=== PATIENT | female | born 1965 | race African-American/Black ===

== ENCOUNTER 2018-04-20 11:58 | Emergency (ER) | payer OTHER ==
[~2018-04-20] VITALS: Ht 167.6 cm; Wt 90.7 kg
--- OUTSIDE RECORDS SUMMARY | 2018-04-20 12:01 | XMS REPORT | Continuity of Care Document ---
Author Author [facility] Organization [facility] Address Unknown Phone Unavailable Care Team Providers Care Motel Front Desk Attendant Name Role Phone JEREL Little LaTanya PP Unavailable Insurance Providers Payer name Policy type / Coverage type Policy ID Covered libertarian ID Policy [place] AETNA - CHOICE PLUS (POS II) AETNA - CHOICE PLUS (POS II) Encounters Encounter Performer Location Date Lab Report Maru Little APRN [facility] Feb 20, 2014 Problems Problem Effective Dates Problem Status CHEST PAIN, ATYPICAL Oct 30, 2012 Active SCREENING, DIABETES MELLITUS Oct 30, 2012 Active FATIGUE Oct 30, 2012 Active HYPOTHYROIDISM Oct 30, 2012 Active MITRAL VALVE PROLAPSE, HX OF Oct 30, 2012 Active VITAMIN D DEFICIENCY Nov 04, 2012 Active SPRAIN&STRAIN UNSPEC SITE SHOULDER&UPPER ARM Jul 20, 2013 Active MUSCLE CRAMPS Feb 20, 2014 Active HISTORY OF - PARATHYROIDECTOMY Feb 20, 2014 Active GANGLION CYST Feb 20, 2014 Active ORAL CONTRACEPTION Feb 20, 2014 Active Procedures Date Description Comments Oct 30, 2012 smoking status never smoker 2012 echocardiogram, complete Complete Feb 20, 2014 smoking status Never smoker Medications Medication Instructions Start Date Status HYOSCYAMINE SULFATE 0.125 MG TABS 3 tabs po bid Oct 30, 2012 Inactive BENZAC W WASH 5 % LIQD use once daily as needed on face Oct 30, 2012 Inactive VITAMIN D (ERGOCALCIFEROL) 76596 UNIT CAPS 1 tab po q weekly for 12 weeks Nov 04, 2012 Inactive TRAMADOL HCL 50 MG TABS 1 tablet twice daily Jul 20, 2013 Inactive BACLOFEN 10 MG TABS 1/2 - 1 tab nightly as needed for muscle spasms Feb 20, 2014 Active GILDESS 1/20 1-20 MG-MCG TABS 1 tab po daily Feb 20, 2014 Active VITAMIN D (ERGOCALCIFEROL) 00311 UNIT CAPS 1 capsule weekly Feb 24, 2014 Active Vital Signs Date Description Test Result Oct 30, 2012 height E&M - 8302-2 HEIGHT 63 in Oct 30, 2012 blood pressure, systolic - 8480-6 BP SYSTOLIC 133 mm Hg Oct 30, 2012 blood pressure, diastolic - 8462-4 BP DIASTOLIC 73 mm Hg Oct 30, 2012 pulse rate E&M - 8867-4 PULSE RATE 79 /min Oct 30, 2012 temperature E&M TEMPERATURE 98.7 deg f Oct 30, 2012 weight E&M - 3141-9 WEIGHT 176 lb Jul 20, 2013 weight E&M - 3141-9 WEIGHT 183 lb Jul 20, 2013 temperature E&M TEMPERATURE 97.9 deg f Jul 20, 2013 blood pressure, systolic - 8480-6 BP SYSTOLIC 118 mm Hg Jul 20, 2013 blood pressure, diastolic - 8462-4 BP DIASTOLIC 71 mm Hg Feb 20, 2014 weight E&M - 3141-9 WEIGHT 177 lb Feb 20, 2014 height E&M - 8302-2 HEIGHT 63 in Feb 20, 2014 pulse rate E&M - 8867-4 PULSE RATE 81 /min Feb 20, 2014 blood pressure, systolic - 8480-6 BP SYSTOLIC 117 mm Hg Feb 20, 2014 blood pressure, diastolic - 8462-4 BP DIASTOLIC 70 mm Hg Feb 20, 2014 temperature E&M TEMPERATURE 96.5 deg f Results Date Description Test Name Value Reference Interpretation Status Oct 30, 2012 hemoglobin, blood HGB 11.9 g/dL 12.0-16.0 Low Oct 30, 2012 hematocrit, blood HCT 36.5 % 36.0-48.0 Oct 30, 2012 platelet count PLATELETS 198 K/CMM /mm3 133-450 Jul 20, 2013 hemoglobin, blood HGB 11.8 g/dL 12.0-16.0 Low Jul 20, 2013 hematocrit, blood HCT 34.7 % 36.0-48.0 Low Jul 20, 2013 platelet count PLATELETS 193 K/CMM /mm3 133-450 Oct 30, 2012 thyroid stimulating hormone, serum TSH 0.763 uIU/mL 0.360-3.740 Jul 20, 2013 sodium, serum SODIUM 141 MEQ/L mmol/L 135-145 Jul 20, 2013 potassium, serum POTASSIUM 4.0 MEQ/L mmol/L 3.5-5.1 Jul 20, 2013 creatinine, serum CREATININE 0.8 mg/dL 0.5-1.4 Jul 20, 2013 urea nitrogen, blood BUN 7 mg/dL 7-Jul 20, 2013 urea nitrogen/creatinine ratio, serum BUN/CREAT 9 null 6-25 Jul 20, 2013 albumin, serum ALBUMIN 3.8 g/dL 3.5-5.0 Jul 20, 2013 calcium, serum CALCIUM 8.6 mg/dL 8.5-10.5 Jul 20, 2013 alanine aminotransferase (SGPT), serum SGPT (ALT) 20 U/L 0-65 Jul 20, 2013 aspartate aminotransferase (SGOT), serum SGOT (AST) 12 U/L 0-37 Jul 20, 2013 alkaline phosphatase, serum ALK PHOS 74 U/L 39-136 Jul 20, 2013 folate, serum FOLATE 18.7 ng/mL >=3.0 Jul 20, 2013 thyroid stimulating hormone, serum TSH 0.398 uIU/mL 0.360-3.740 Feb 20, 2014 phosphate, serum PO4 2.9 mg/dL 2.5-4.5 Feb 20, 2014 creatine kinase, serum CPK 44 U/L 12-191 Feb 20, 2014 magnesium, serum MAGNESIUM 1.7 mg/dL 1.8-2.4 Low Feb 20, 2014 sodium, serum SODIUM 143 MEQ/L mmol/L 135-145 Feb 20, 2014 potassium, serum POTASSIUM 3.9 MEQ/L mmol/L 3.5-5.1 Feb 20, 2014 creatinine, serum CREATININE 0.8 mg/dL 0.5-1.4 Feb 20, 2014 urea nitrogen, blood BUN 8 mg/dL 7-22 Feb 20, 2014 urea nitrogen/creatinine ratio, serum BUN/CREAT 10 null 6-25 Feb 20, 2014 albumin, serum ALBUMIN 3.4 g/dL 3.5-5.0 Low Feb 20, 2014 calcium, serum CALCIUM 8.6 mg/dL 8.5-10.5 Feb 20, 2014 alanine aminotransferase (SGPT), serum SGPT (ALT) 16 U/L 0-65 Feb 20, 2014 aspartate aminotransferase (SGOT), serum SGOT (AST) 14 U/L 0-37 Feb 20, 2014 alkaline phosphatase, serum ALK PHOS 68 U/L 39-136 Feb 20, 2014 thyroxine, serum, free T4, FREE 1.13 ng/dl 0.76-1.46 Feb 20, 2014 thyroid stimulating hormone, serum TSH 0.990 uIU/mL 0.360-3.740 Feb 20, 2014 parathormone, serum PTH, INTACT 55.0 pg/mL 11.1-79.5
--- OUTSIDE RECORDS SUMMARY | 2018-04-20 12:01 | XMS REPORT | Continuity of Care Document ---
Author Author [facility] Organization [facility] Address Unknown Phone Unavailable Care Team Providers Care Long Wall Mining Machine Helper Name Role Phone JEREL Little LaTanya PP Unavailable Insurance Providers Payer name Policy type / Coverage type Policy ID Covered alliance party ID Policy [place] AETNA - CHOICE PLUS (POS II) AETNA - CHOICE PLUS (POS II) Encounters Encounter Performer Location Date Office Visit Maru Little APRN [facility] Jul 20, 2013 Problems Problem Effective Dates Problem Status CHEST PAIN, ATYPICAL Oct 30, 2012 Active SCREENING, DIABETES MELLITUS Oct 30, 2012 Active FATIGUE Oct 30, 2012 Active HYPOTHYROIDISM Oct 30, 2012 Active MITRAL VALVE PROLAPSE, HX OF Oct 30, 2012 Active VITAMIN D DEFICIENCY Nov 04, 2012 Active SPRAIN&STRAIN UNSPEC SITE SHOULDER&UPPER ARM Jul 20, 2013 Active Procedures Date Description Comments Oct 30, 2012 smoking status never smoker 2012 echocardiogram, complete Complete Medications Medication Instructions Start Date Status HYOSCYAMINE SULFATE 0.125 MG TABS 3 tabs po bid Oct 30, 2012 Inactive BENZAC W WASH 5 % LIQD use once daily as needed on face Oct 30, 2012 Inactive VITAMIN D (ERGOCALCIFEROL) 14401 UNIT CAPS 1 tab po q weekly for 12 weeks Nov 04, 2012 Inactive TRAMADOL HCL 50 MG TABS 1 tablet twice daily Jul 20, 2013 Active Vital Signs Date Description Test Result [...] - 8462-4 BP DIASTOLIC 71 mm Hg Results Date Description Test Name Value Reference [...] 2013 urea nitrogen, blood BUN 7 mg/dL 7-22 Jul 20, 2013 urea nitrogen/creatinine ratio, serum BUN/CREAT [...]
--- OUTSIDE RECORDS SUMMARY | 2018-04-20 12:01 | XMS REPORT | Continuity of Care Document ---
Author Author [facility] Organization [facility] Address Unknown Phone Unavailable Care Team Providers Care Tyre Fitter Name Role Phone JEREL Little LaTanya PP Unavailable Insurance Providers Payer name Policy type / Coverage type Policy ID Covered green party ID Policy [place] AETNA - CHOICE PLUS (POS II) AETNA - CHOICE PLUS (POS II) Encounters Encounter Performer Location Date Office Visit Maru Little APRN [facility] September 16, 2014 Problems Problem Effective Dates Problem Status CHEST PAIN, ATYPICAL Oct 30, 2012 Inactive SCREENING, DIABETES MELLITUS Oct 30, 2012 Active FATIGUE Oct 30, 2012 Inactive HYPOTHYROIDISM Oct 30, 2012 Active MITRAL VALVE PROLAPSE, HX OF Oct 30, 2012 Active VITAMIN D DEFICIENCY Nov 04, 2012 Active SPRAIN&STRAIN UNSPEC SITE SHOULDER&UPPER ARM Jul 20, 2013 Inactive MUSCLE CRAMPS Feb 20, 2014 Inactive HISTORY OF - PARATHYROIDECTOMY Feb 20, 2014 Active GANGLION CYST Feb 20, 2014 Active ORAL CONTRACEPTION Feb 20, 2014 Active SCREENING FOR DIABETES MELLITUS Mar 03, 2014 Active LEUKORRHEA, NOT SPECIFIED INFECTIVE Apr 19, 2014 Active DYSURIA Apr 19, 2014 Active INFLUENZA - TYPE A Jun 05, 2014 Inactive DYSPEPSIA AND OTHER SPECIFIED DISORDERS OF FUNCTION OF STOMACH September 16, 2014 Active ANEMIA September 16, 2014 Active IRRITABLE BOWEL SYNDROME September 16, 2014 Active Procedures Date Description Comments Oct 30, 2012 smoking status never smoker 2012 echocardiogram, complete Complete Feb 20, 2014 smoking status Never smoker Jun 05, 2014 smoking status Never smoker September 16, 2014 smoking status Never smoker Medications Medication Instructions Start Date Status HYOSCYAMINE SULFATE 0.125 MG TABS 3 tabs po bid Oct 30, 2012 Inactive BENZAC W WASH 5 % LIQD use once daily as needed on face Oct 30, 2012 Inactive VITAMIN D (ERGOCALCIFEROL) 37198 UNIT CAPS 1 tab po q weekly for 12 weeks Nov 04, 2012 Inactive TRAMADOL HCL 50 MG TABS 1 tablet twice daily Jul 20, 2013 Inactive VITAMIN D (ERGOCALCIFEROL) 97825 UNIT CAPS 1 capsule weekly Feb 24, 2014 Inactive METRONIDAZOLE 500 MG TABS one po bid Apr 19, 2014 Inactive BACTRIM DS 800-160 MG TABS one po bid Apr 19, 2014 Inactive FLUCONAZOLE 150 MG TABS one po now and may repeat on 72 h x 2 if problem presists Apr 19, 2014 Inactive FLUCONAZOLE 150 MG TABS one po now May 27, 2014 Inactive BACLOFEN 10 MG TABS 1/2 - 1 tab nightly as needed for muscle spasms Feb 20, 2014 Inactive GILDESS 1/20 1-20 MG-MCG TABS 1 tab po daily Feb 20, 2014 Inactive LIDOCAINE HCL 2 % GEL apply to affected painful area tid prn Apr 19, 2014 Inactive TAMIFLU 75 MG CAPS 1 capsule twice daily Jun 05, 2014 Inactive OMEPRAZOLE 40 MG CPDR Take one capsule by mouth daily September 16, 2014 Active HYOSCYAMINE SULFATE 0.125 MG TABS 1 tab po up to 3x daily prior to meals September 16, 2014 Active Vital Signs Date Description Test [...] 2014 temperature E&M TEMPERATURE 96.5 deg f Apr 19, 2014 weight E&M - 3141-9 WEIGHT 173 lb Apr 19, 2014 temperature E&M TEMPERATURE 98.7 deg f Apr 19, 2014 blood pressure, systolic - 8480-6 BP SYSTOLIC 110 mm Hg Apr 19, 2014 blood pressure, diastolic - 8462-4 BP DIASTOLIC 73 mm Hg Apr 19, 2014 pulse rate E&M - 8867-4 PULSE RATE 72 /min Jun 05, 2014 height E&M - 8302-2 HEIGHT 63 in Jun 05, 2014 weight E&M - 3141-9 WEIGHT 172 lb Jun 05, 2014 temperature E&M TEMPERATURE 101.2 deg f Jun 05, 2014 pulse rate E&M - 8867-4 PULSE RATE 93 /min Jun 05, 2014 blood pressure, systolic - 8480-6 BP SYSTOLIC 135 mm Hg Jun 05, 2014 blood pressure, diastolic - 8462-4 BP DIASTOLIC 79 mm Hg September 16, 2014 weight E&M - 3141-9 WEIGHT 175 lb September 16, 2014 blood pressure, systolic - 8480-6 BP SYSTOLIC 122 mm Hg September 16, 2014 blood pressure, diastolic - 8462-4 BP DIASTOLIC 76 mm Hg September 16, 2014 pulse rate E&M - 8867-4 PULSE RATE 74 /min September 16, 2014 temperature E&M TEMPERATURE 98.5 deg f Results Date Description Test Name [...] parathormone, serum PTH, INTACT 55.0 pg/mL 11.1-79.5 Mar 10, 2014 hemoglobin A1C, blood, as % of total hemoglobin HGBA1C 5.4 % <=5.6
--- OUTSIDE RECORDS SUMMARY | 2018-04-20 12:01 | XMS REPORT | Continuity of Care Document ---
Author Author [facility] Organization [facility] Address Unknown Phone Unavailable Care Team Providers Care Load Haul Dump Operator Name Role Phone JEREL Little LaTanya PP Unavailable Insurance Providers Payer name Policy type / Coverage type Policy ID Covered green party ID Policy [place] AETNA - CHOICE PLUS (POS II) AETNA - CHOICE PLUS (POS II) Encounters Encounter Performer Location Date Lab Report Maru Little APRN [facility] Mar 10, 2014 Problems Problem Effective Dates Problem Status [...] FOR DIABETES MELLITUS Mar 03, 2014 Active Procedures Date Description Comments Oct 30, 2012 smoking status never smoker 2012 echocardiogram, complete Complete Feb 20, 2014 smoking status Never smoker Medications Medication Instructions Start Date Status HYOSCYAMINE SULFATE 0.125 MG TABS 3 tabs po bid Oct 30, 2012 Inactive BENZAC W WASH 5 % LIQD use once daily as needed on face Oct 30, 2012 Inactive VITAMIN D (ERGOCALCIFEROL) 32043 UNIT CAPS 1 tab po q weekly for 12 weeks Nov 04, 2012 Inactive TRAMADOL HCL 50 MG TABS 1 tablet twice daily Jul 20, 2013 Inactive BACLOFEN 10 MG TABS 1/2 - 1 tab nightly as needed for muscle spasms Feb 20, 2014 Active GILDESS 1/20 1-20 MG-MCG TABS 1 tab po daily Feb 20, 2014 Active VITAMIN D (ERGOCALCIFEROL) 82222 UNIT CAPS 1 capsule weekly Feb 24, [...]
--- OUTSIDE RECORDS SUMMARY | 2018-04-20 12:01 | XMS REPORT | Continuity of Care Document ---
Author Author [facility] Organization [facility] Address Unknown Phone Unavailable Care Team Providers Care Rf Design Engineer Name Role Phone JEREL Little LaTanya PP Unavailable Insurance Providers Payer name Policy type / Coverage type Policy ID Covered democrat ID Policy [place]agne AETNA - CHOICE PLUS (POS II) AETNA - CHOICE PLUS (POS II) Encounters Encounter Performer Location Date Lab Report Maru Little APRN [facility] [place] Jul 22, 2013 Problems Problem Effective Dates Problem Status [...] Oct 30, 2012 Inactive VITAMIN D (ERGOCALCIFEROL) 42040 UNIT CAPS 1 tab po q weekly [...]
--- OUTSIDE RECORDS SUMMARY | 2018-04-20 12:01 | XMS REPORT | Continuity of Care Document ---
Author Author [facility] Organization [facility] Address Unknown Phone Unavailable Care Team Providers Care Master Motorcycle Technician Name Role Phone JEREL Little LaTanya PP Unavailable Insurance Providers Payer name Policy type / Coverage type Policy ID Covered green party ID Policy [place] AETNA - CHOICE PLUS (POS II) AETNA - CHOICE PLUS (POS II) Encounters Encounter Performer Location Date Office Visit Maru Little APRN [facility] Jun 05, 2014 Problems Problem Effective Dates Problem Status [...] INFLUENZA - TYPE A Jun 05, 2014 Active Procedures Date Description Comments Oct 30, 2012 smoking status never smoker 2012 echocardiogram, complete Complete Feb 20, 2014 smoking status Never smoker Jun 05, 2014 smoking status Never smoker Medications Medication Instructions Start Date Status HYOSCYAMINE SULFATE 0.125 MG TABS 3 tabs po bid Oct 30, 2012 Inactive BENZAC W WASH 5 % LIQD use once daily as needed on face Oct 30, 2012 Inactive VITAMIN D (ERGOCALCIFEROL) 90628 UNIT CAPS 1 tab po q weekly for 12 weeks Nov 04, 2012 Inactive TRAMADOL HCL 50 MG TABS 1 tablet twice daily Jul 20, 2013 Inactive VITAMIN D (ERGOCALCIFEROL) 28351 UNIT CAPS 1 capsule weekly Feb 24, [...] muscle spasms Feb 20, 2014 Inactive GILDESS 05/13 1-20 MG-MCG TABS 1 tab po daily Feb 20, 2014 Inactive LIDOCAINE HCL 2 % GEL apply to affected painful area tid prn Apr 19, 2014 Inactive TAMIFLU 75 MG CAPS 1 capsule twice daily Jun 05, 2014 Active Vital Signs Date Description Test [...] - 8462-4 BP DIASTOLIC 79 mm Hg Results Date Description Test Name [...]
--- OUTSIDE RECORDS SUMMARY | 2018-04-20 12:01 | XMS REPORT | Clinical Summary ---
Author Author [facility] Organization [facility] Address Unknown Phone Unavailable Care Team Providers Care Audio Visual Equipment Rental Clerk Name Role Phone Asked, No Pcp PCP Unavailable Allergies No Known Allergies Medications End Date Status Medication Sig Dispensed Refills Start Date Active methylPREDNISolone Take 2 mg by 0 (MEDROL) 2 MG tablet mouth daily. Active hydrOXYzine (ATARAX) 25 Take 25 mg by 0 MG tablet mouth 3 (three) times a day as needed for itching. Active Problems Not on file Social History Date Tobacco Use Types Packs/Day Years Used Never Smoker Alcohol Use Drinks/Week oz/Week Comments No Sex Assigned at Date Recorded Not on file Industry Job Start Date Occupation Not on file Not on file Not on file Travel End Travel History Travel Start No recent travel history available. Last Filed Vital Signs Not on file Plan of Treatment Health Maintenance Due Date Last Done Comments CERVICAL CANCER SCREENING 12/07/1987 COLON CANCER SCREENING 2016 SHINGLES VACCINES (1 of 2016 2) BREAST CANCER SCREENING 07/19/2017 07/20/2015, 07/20/2015, 07/04/2015 INFLUENZA VACCINE 11/22/2017 Results Not on fileafter 04/19/2017 Insurance Payer Benefit Subscriber ID Type Phone Address Plan / Group CIGNA CIGNA xxxxxxxxxxx HMO HMO/POS [id number] (Work) Advance Directives Patient has advance care planning documents on file. For more information, lyla velasco contact: Greg Horne [address] [place] [address]
--- OUTSIDE RECORDS SUMMARY | 2018-04-20 12:01 | XMS REPORT | Continuity of Care Document ---
Author Author [facility] Organization [facility] Address Unknown Phone Unavailable Care Team Providers Care Anhydrous Ammonia Production Supervisor Name Role Phone JEREL Little LaTanya PP Unavailable Insurance Providers Payer name Policy type / Coverage type Policy ID Covered green party ID Policy [place] AETNA - CHOICE PLUS (POS II) AETNA - CHOICE PLUS (POS II) Encounters Encounter Performer Location Date Lab Report Maru Little APRN [facility] Apr 18, 2014 Problems Problem Effective Dates Problem Status [...] 2014 Active DYSURIA Apr 19, 2014 Active Procedures Date Description Comments Oct 30, 2012 smoking status never smoker 2012 echocardiogram, complete Complete Feb 20, 2014 smoking status Never smoker Medications Medication Instructions Start Date Status HYOSCYAMINE SULFATE 0.125 MG TABS 3 tabs po bid Oct 30, 2012 Inactive BENZAC W WASH 5 % LIQD use once daily as needed on face Oct 30, 2012 Inactive VITAMIN D (ERGOCALCIFEROL) 27391 UNIT CAPS 1 tab po q weekly for 12 weeks Nov 04, 2012 Inactive TRAMADOL HCL 50 MG TABS 1 tablet twice daily Jul 20, 2013 Inactive BACLOFEN 10 MG TABS 1/2 - 1 tab nightly as needed for muscle spasms Feb 20, 2014 Active GILDESS 1/20 1-20 MG-MCG TABS 1 tab po daily Feb 20, 2014 Active VITAMIN D (ERGOCALCIFEROL) 86514 UNIT CAPS 1 capsule weekly Feb 24, 2014 Inactive METRONIDAZOLE 500 MG TABS one po bid Apr 19, 2014 Inactive LIDOCAINE HCL 2 % GEL apply to affected painful area tid prn Apr 19, 2014 Active BACTRIM DS 800-160 MG TABS one po bid Apr 19, 2014 Inactive FLUCONAZOLE 150 MG TABS one po now and may repeat on 72 h x 2 if problem presists Apr 19, 2014 Inactive Vital Signs Date Description Test Result Oct [...] E&M - 8867-4 PULSE RATE 72 /min Results Date Description Test Name Value Reference [...]
--- OUTSIDE RECORDS SUMMARY | 2018-04-20 12:01 | XMS REPORT | Continuity of Care Document ---
Author Author [facility] Interface Address Unknown Phone Unavailable Problems Problem Status Onset Date Classification Date Reported Comments Source DYSPEPSIA AND OTHER SPECIFIED DISORDERS OF FUNCTION OF STOMACH Active 09/16/2014 Condition 09/16/2014 [facility] ANEMIA Active 09/16/2014 Condition 09/16/2014 [facility] IRRITABLE BOWEL SYNDROME Active 09/16/2014 Condition 09/16/2014 [facility] INFLUENZA - TYPE A Inactive 06/05/2014 Condition 09/16/2014 [facility] LEUKORRHEA, NOT SPECIFIED INFECTIVE Active 04/19/2014 Condition 09/16/2014 [facility] DYSURIA Active 04/19/2014 Condition 09/16/2014 [facility] SCREENING FOR DIABETES MELLITUS Active 03/03/2014 Condition 09/16/2014 [facility] MUSCLE CRAMPS Inactive 02/20/2014 Condition 09/16/2014 [facility] HISTORY OF - PARATHYROIDECTOMY Active 02/20/2014 Condition 09/16/2014 [facility] GANGLION CYST Active 02/20/2014 Condition 09/16/2014 [facility] ORAL CONTRACEPTION Active 02/20/2014 Condition 09/16/2014 [facility] SPRAIN&STRAIN UNSPEC SITE SHOULDER&UPPER ARM Inactive 07/20/2013 Condition 09/16/2014 [facility] VITAMIN D DEFICIENCY Active 11/04/2012 Condition 09/16/2014 [facility] CHEST PAIN, ATYPICAL Inactive 10/30/2012 Condition 09/16/2014 [facility] SCREENING, DIABETES MELLITUS Active 10/30/2012 Condition 09/16/2014 [facility] FATIGUE Inactive 10/30/2012 Condition 09/16/2014 [facility] HYPOTHYROIDISM Active 10/30/2012 Condition 09/16/2014 [facility] MITRAL VALVE PROLAPSE, HX OF Active 10/30/2012 Condition 09/16/2014 [facility] Medications Medication Details Route Status Patient Instructions Ordering Provider Order Date Source MAGNESIUM OXIDE 400 MG CAPS 1 cap po bid for low magnesium Active 09/22/2014 [facility] VITAMIN D3 19438 UNIT CAPS 50,000 units once weekly x 12 weeks Active 09/22/2014 [facility] OMEPRAZOLE 40 MG CPDR Take one capsule by mouth daily Active 09/16/2014 [facility] HYOSCYAMINE SULFATE 0.125 MG TABS 1 tab po up to 3x daily prior to meals Active 09/16/2014 [facility] TAMIFLU 75 MG CAPS 1 capsule twice daily No Longer Active 06/05/2014 [facility] FLUCONAZOLE 150 MG TABS one po now No Longer Active 05/27/2014 [facility] METRONIDAZOLE 500 MG TABS one po bid No Longer Active 04/19/2014 [facility] LIDOCAINE HCL 2 % GEL apply to affected painful area tid prn No Longer Active 04/19/2014 [facility] BACTRIM DS 800-160 MG TABS one po bid No Longer Active 04/19/2014 [facility] FLUCONAZOLE 150 MG TABS one po now and may repeat on 72 h x 2 if problem presists No Longer Active 04/19/2014 [facility] VITAMIN D (ERGOCALCIFEROL) 33008 UNIT CAPS 1 capsule weekly No Longer Active 02/24/2014 [facility] BACLOFEN 10 MG TABS 1/2 - 1 tab nightly as needed for muscle spasms Active 02/20/2014 [facility] GILDESS 05/13 1-20 MG-MCG TABS 1 tab po daily No Longer Active 02/20/2014 [facility] BACLOFEN 10 MG TABS 1/2 - 1 tab nightly as needed for muscle spasms Active 02/20/2014 [facility] ORTHO TRI-CYCLEN LO 0.18/0.215/0.25 MG-25 MCG TABS 1 tablet daily Active 02/20/2014 [facility] BACLOFEN 10 MG TABS 1/2 - 1 tab nightly as needed for muscle spasms Active 02/20/2014 [facility] BACLOFEN 10 MG TABS 1/2 - 1 tab nightly as needed for muscle spasms No Longer Active 02/20/2014 [facility] TRAMADOL HCL 50 MG TABS 1 tablet twice daily No Longer Active 07/20/2013 [facility] TRAMADOL HCL 50 MG TABS 1 tablet twice daily No Longer Active 07/20/2013 [facility] TRAMADOL HCL 50 MG TABS 1 tablet twice daily No Longer Active 07/20/2013 [facility] TRAMADOL HCL 50 MG TABS 1 tablet twice daily No Longer Active 07/20/2013 [facility] VITAMIN D (ERGOCALCIFEROL) 95808 UNIT CAPS 1 tab po q weekly for 12 weeks No Longer Active 11/04/2012 [facility] VITAMIN D (ERGOCALCIFEROL) 24032 UNIT CAPS 1 tab po q weekly for 12 weeks No Longer Active 11/04/2012 [facility] HYOSCYAMINE SULFATE 0.125 MG TABS 3 tabs po bid No Longer Active 10/30/2012 [facility] BENZAC W WASH 5 % LIQD use once daily as needed on face No Longer Active 10/30/2012 [facility] HYOSCYAMINE SULFATE 0.125 MG TABS 3 tabs po bid No Longer Active 10/30/2012 [facility] Allergies, Adverse Reactions, Alerts Substance Category Reaction Severity Reaction type Status Date Reported Comments Source Immunizations Immunization Date Given Site Status Last Updated Comments Source Results Order Name Results Value Reference Range Date Interpretation Comments Source Chemistry MAGNESIUM 1.6 mg/dL 1.8 - 2.4 09/16/2014 [facility] Chemistry SODIUM 141 MEQ/L mmol/L 135 - 145 09/16/2014 [facility] Chemistry POTASSIUM 4.2 MEQ/L mmol/L 3.5 - 5.1 09/16/2014 [facility] Chemistry CREATININE 0.8 mg/dL 0.5 - 1.4 09/16/2014 [facility] Chemistry BUN 8 mg/dL 7 - 22 09/16/2014 [facility] Chemistry BUN/CREAT 10 6 - 25 09/16/2014 [facility] Chemistry ALBUMIN 3.4 g/dL 3.5 - 5.0 09/16/2014 [facility] Chemistry CALCIUM 8.6 mg/dL 8.5 - 10.5 09/16/2014 [facility] Chemistry SGPT (ALT) 23 U/L 0 - 65 09/16/2014 [facility] Chemistry SGOT (AST) 16 U/L 0 - 37 09/16/2014 [facility] Chemistry ALK PHOS 67 U/L 39 - 136 09/16/2014 [facility] Chemistry T4, FREE 1.01 ng/dl 0.76 - 1.46 09/16/2014 [facility] Chemistry TSH 0.978 uIU/mL 0.360 - 3.740 09/16/2014 [facility] Hematology HGB 11.6 g/dL 12.0 - 16.0 09/16/2014 [facility] Hematology HCT 35.2 % 36.0 - 48.0 09/16/2014 [facility] Hematology PLATELETS 238 K/CMM /mm3 133 - 450 09/16/2014 [facility] Urinalysis UA COLOR Light Yellow 09/16/2014 [facility] Urinalysis BACTERIA URN Occasional 09/16/2014 [facility] Chemistry HGBA1C 5.4 % - 5.6 03/10/2014 [facility] Chemistry HGBA1C 5.4 % - 5.6 03/10/2014 [facility] Chemistry PO4 2.9 mg/dL 2.5 - 4.5 02/20/2014 [facility] Chemistry CPK 44 U/L 12 - 191 02/20/2014 [facility] Chemistry MAGNESIUM 1.7 mg/dL 1.8 - 2.4 02/20/2014 [facility] Chemistry SODIUM 143 MEQ/L mmol/L 135 - 145 02/20/2014 [facility] Chemistry POTASSIUM 3.9 MEQ/L mmol/L 3.5 - 5.1 02/20/2014 [facility] Chemistry PO4 2.9 mg/dL 2.5 - 4.5 02/20/2014 [facility] Chemistry CPK 44 U/L 12 - 191 02/20/2014 [facility] Chemistry MAGNESIUM 1.7 mg/dL 1.8 - 2.4 02/20/2014 [facility] Chemistry SODIUM 143 MEQ/L mmol/L 135 - 145 02/20/2014 [facility] Chemistry POTASSIUM 3.9 MEQ/L mmol/L 3.5 - 5.1 02/20/2014 [facility] Chemistry CREATININE 0.8 mg/dL 0.5 - 1.4 02/20/2014 [facility] Chemistry BUN 8 mg/dL 7 - 22 02/20/2014 [facility] Chemistry BUN/CREAT 10 6 - 25 02/20/2014 [facility] Chemistry ALBUMIN 3.4 g/dL 3.5 - 5.0 02/20/2014 [facility] Chemistry CALCIUM 8.6 mg/dL 8.5 - 10.5 02/20/2014 [facility] Chemistry SGPT (ALT) 16 U/L 0 - 65 02/20/2014 [facility] Chemistry SGOT (AST) 14 U/L 0 - 37 02/20/2014 [facility] Chemistry ALK PHOS 68 U/L 39 - 136 02/20/2014 [facility] Chemistry T4, FREE 1.13 ng/dl 0.76 - 1.46 02/20/2014 [facility] Chemistry TSH 0.990 uIU/mL 0.360 - 3.740 02/20/2014 [facility] Chemistry PTH, INTACT 55.0 pg/mL 11.1 - 79.5 02/20/2014 [facility] Chemistry SODIUM 141 MEQ/L mmol/L 135 - 145 07/20/2013 [facility] Chemistry POTASSIUM 4.0 MEQ/L mmol/L 3.5 - 5.1 07/20/2013 [facility] Chemistry CREATININE 0.8 mg/dL 0.5 - 1.4 07/20/2013 [facility] Chemistry BUN 7 mg/dL 7 - 22 07/20/2013 Medical [facility] Chemistry BUN/CREAT 9 6 - 25 07/20/2013 [facility] Chemistry SODIUM 141 MEQ/L mmol/L 135 - 145 07/20/2013 [facility] Chemistry POTASSIUM 4.0 MEQ/L mmol/L 3.5 - 5.1 07/20/2013 Medical [facility] Chemistry CREATININE 0.8 mg/dL 0.5 - 1.4 07/20/2013 Medical [facility] Chemistry BUN 7 mg/dL 7 - 22 07/20/2013 Medical [facility] Chemistry BUN/CREAT 9 6 - 25 07/20/2013 [facility] Chemistry ALBUMIN 3.8 g/dL 3.5 - 5.0 07/20/2013 [facility] Chemistry CALCIUM 8.6 mg/dL 8.5 - 10.5 07/20/2013 Medical [facility] Chemistry SGPT (ALT) 20 U/L 0 - 65 07/20/2013 [facility] Chemistry SGOT (AST) 12 U/L 0 - 37 07/20/2013 Medical [facility] Chemistry ALK PHOS 74 U/L 39 - 136 07/20/2013 Medical [facility] Chemistry FOLATE 18.7 ng/mL >=3.0 07/20/2013 [facility] Chemistry TSH 0.398 uIU/mL 0.360 - 3.740 07/20/2013 Medical [facility] Hematology HGB 11.8 g/dL 12.0 - 16.0 07/20/2013 Medical [facility] Hematology HCT 34.7 % 36.0 - 48.0 07/20/2013 Medical [facility] Hematology PLATELETS 193 K/CMM /mm3 133 - 450 07/20/2013 [facility] Chemistry TSH 0.763 uIU/mL 0.360 - 3.740 10/30/2012 Medical [facility] Chemistry TSH 0.763 uIU/mL 0.360 - 3.740 10/30/2012 [facility] Hematology HGB 11.9 g/dL 12.0 - 16.0 10/30/2012 [facility] Hematology HCT 36.5 % 36.0 - 48.0 10/30/2012 [facility] Hematology PLATELETS 198 K/CMM /mm3 133 - 450 10/30/2012 [facility] Vital Signs Vital Sign Value Date Comments Source Weight 175 09/16/2014 [facility] Systolic (mm Hg) 122 09/16/2014 [facility] Diastolic (mm Hg) 76 09/16/2014 [facility] Heart Rate 74 09/16/2014 [facility] Temperature Oral (F) 98.5 F 09/16/2014 [facility] Height 63 06/05/2014 [facility] Weight 172 06/05/2014 [facility] Temperature Oral (F) 101.2 F 06/05/2014 [facility] Heart Rate 93 06/05/2014 [facility] Systolic (mm Hg) 135 06/05/2014 [facility] Diastolic (mm Hg) 79 06/05/2014 [facility] Weight 173 04/19/2014 [facility] Temperature Oral (F) 98.7 F 04/19/2014 [facility] Systolic (mm Hg) 110 04/19/2014 [facility] Diastolic (mm Hg) 73 04/19/2014 [facility] Heart Rate 72 04/19/2014 [facility] Weight 177 02/20/2014 [facility] Height 63 02/20/2014 [facility] Heart Rate 81 02/20/2014 [facility] Systolic (mm Hg) 117 02/20/2014 [facility] Diastolic (mm Hg) 70 02/20/2014 [facility] Temperature Oral (F) 96.5 F 02/20/2014 [facility] Weight 183 07/20/2013 [facility] Temperature Oral (F) 97.9 F 07/20/2013 [facility] Systolic (mm Hg) 118 07/20/2013 [facility] Diastolic (mm Hg) 71 07/20/2013 [facility] Height 63 10/30/2012 [facility] Systolic (mm Hg) 133 10/30/2012 [facility] Diastolic (mm Hg) 73 10/30/2012 [facility] Heart Rate 79 10/30/2012 [facility] Temperature Oral (F) 98.7 F 10/30/2012 [facility] Weight 176 10/30/2012 Medical [facility] Encounters Location Location Details Encounter Type Encounter Number Reason For Visit Attending Provider ADM Date DC Date Status Source [facility] Office Visit [id number] Maru Little, GRINDER SETUP OPERATOR 07/20/2013 07/20/2013 [facility] Lab Report [id number] Maru Little, GRINDER SETUP OPERATOR 07/22/2013 07/22/2013 [facility] Office Visit [id number] Maru Little, GRINDER SETUP OPERATOR 02/20/2014 02/20/2014 [facility] Lab Report [id number] Maru Little, GRINDER SETUP OPERATOR 02/20/2014 02/20/2014 [facility] Lab Report [id number] Maru Little, GRINDER SETUP OPERATOR 03/10/2014 03/10/2014 [facility] Lab Report [id number] Maru Little, GRINDER SETUP OPERATOR 04/18/2014 04/18/2014 [facility] Office Visit [id number] Maru Little, GRINDER SETUP OPERATOR 06/05/2014 06/05/2014 [facility] Office Visit [id number] Maru Little, GRINDER SETUP OPERATOR 09/16/2014 09/16/2014 [facility] Lab Report [id number] Maru Little, GRINDER SETUP OPERATOR 09/16/2014 09/16/2014 [facility] Procedures Procedure Code Date Perfomer Comments Source echocardiogram, complete 97843 2012 Complete [facility]
--- OUTSIDE RECORDS SUMMARY | 2018-04-20 12:01 | XMS REPORT | Continuity of Care Document ---
Author Author [facility] Organization [facility] Address Unknown Phone Unavailable Care Team Providers Care Retirement Manager Name Role Phone JEREL Little LaTanya PP Unavailable Insurance Providers Payer name Policy type / Coverage type Policy ID Covered libertarian ID Policy [place] AETNA - CHOICE PLUS (POS II) AETNA - CHOICE PLUS (POS II) Encounters Encounter Performer Location Date Office Visit Maru Little APRN [facility] Feb 20, 2014 Problems Problem Effective Dates [...] Oct 30, 2012 Inactive VITAMIN D (ERGOCALCIFEROL) 88338 UNIT CAPS 1 tab po q weekly for 12 weeks Nov 04, 2012 Inactive TRAMADOL HCL 50 MG TABS 1 tablet twice daily Jul 20, 2013 Inactive BACLOFEN 10 MG TABS 1/2 - 1 tab nightly as needed for muscle spasms Feb 20, 2014 Active ORTHO TRI-CYCLEN LO 0.18/0.215/0.25 MG-25 MCG TABS 1 tablet daily Feb 20, 2014 Active Vital Signs Date Description Test [...]
--- OUTSIDE RECORDS SUMMARY | 2018-04-20 12:01 | XMS REPORT | Continuity of Care Document ---
Author Author [facility] Organization [facility] Address Unknown Phone Unavailable Care Team Providers Care Personal Care Worker Name Role Phone JEREL Little LaTanya PP Unavailable Insurance Providers Payer name Policy type / Coverage type Policy ID Covered green party ID Policy [place] AETNA - CHOICE PLUS (POS II) AETNA - CHOICE PLUS (POS II) Encounters Encounter Performer Location Date Lab Report Maru Little APRN [facility] Jul 22, 2013 Problems Problem Effective Dates [...] Oct 30, 2012 Inactive VITAMIN D (ERGOCALCIFEROL) 43842 UNIT CAPS 1 tab po q weekly [...]
--- OUTSIDE RECORDS SUMMARY | 2018-04-20 12:02 | XMS REPORT | Continuity of Care Document ---
Author Author [facility] Organization [facility] Address Unknown Phone Unavailable Care Team Providers Care Paper And Prints Restorer Name Role Phone JEREL Little LaTanya PP Unavailable Insurance Providers Payer name Policy type / Coverage type Policy ID Covered constitution party ID Policy [place] AETNA - CHOICE PLUS (POS II) AETNA - CHOICE PLUS (POS II) Encounters Encounter Performer Location Date Lab Report Maru Little APRN [facility] September 16, 2014 Problems Problem Effective Dates [...] Oct 30, 2012 Inactive VITAMIN D (ERGOCALCIFEROL) 11298 UNIT CAPS 1 tab po q weekly for 12 weeks Nov 04, 2012 Inactive TRAMADOL HCL 50 MG TABS 1 tablet twice daily Jul 20, 2013 Inactive VITAMIN D (ERGOCALCIFEROL) 48980 UNIT CAPS 1 capsule weekly Feb 24, [...] prior to meals September 16, 2014 Active MAGNESIUM OXIDE 400 MG CAPS 1 cap po bid for low magnesium Sep 22, 2014 Active VITAMIN D3 74203 UNIT CAPS 50,000 units once weekly x 12 weeks Sep 22, 2014 Active Vital Signs Date Description Test [...] platelet count PLATELETS 193 K/CMM /mm3 133-450 September 16, 2014 hemoglobin, blood HGB 11.6 g/dL 12.0-16.0 Low September 16, 2014 hematocrit, blood HCT 35.2 % 36.0-48.0 Low September 16, 2014 platelet count PLATELETS 238 K/CMM /mm3 133-450 September 16, 2014 urine color UA COLOR Light Yellow null Yellow September 16, 2014 bacteria, urine microscopy BACTERIA URN Occasional null None Seen Oct 30, 2012 thyroid stimulating hormone, serum [...] of total hemoglobin HGBA1C 5.4 % <=5.6 September 16, 2014 magnesium, serum MAGNESIUM 1.6 mg/dL 1.8-2.4 Low September 16, 2014 sodium, serum SODIUM 141 MEQ/L mmol/L 135-145 September 16, 2014 potassium, serum POTASSIUM 4.2 MEQ/L mmol/L 3.5-5.1 September 16, 2014 creatinine, serum CREATININE 0.8 mg/dL 0.5-1.4 September 16, 2014 urea nitrogen, blood BUN 8 mg/dL 7-September 16, 2014 urea nitrogen/creatinine ratio, serum BUN/CREAT 10 null 6-25 September 16, 2014 albumin, serum ALBUMIN 3.4 g/dL 3.5-5.0 Low September 16, 2014 calcium, serum CALCIUM 8.6 mg/dL 8.5-10.5 September 16, 2014 alanine aminotransferase (SGPT), serum SGPT (ALT) 23 U/L 0-65 September 16, 2014 aspartate aminotransferase (SGOT), serum SGOT (AST) 16 U/L 0-37 September 16, 2014 alkaline phosphatase, serum ALK PHOS 67 U/L 39-136 September 16, 2014 thyroxine, serum, free T4, FREE 1.01 ng/dl 0.76-1.46 September 16, 2014 thyroid stimulating hormone, serum TSH 0.978 uIU/mL 0.360-3.740
--- NOTE | 2018-04-20 13:03 | Diagnostic Imaging Report ---
EXAMINATION: CXR 1 VEW - HOPD COMPARISON: None FINDINGS: TUBES and LINES: None. LUNGS: Lungs are well inflated. Lungs are clear. There is no evidence of pneumonia or pulmonary edema. PLEURA: No pleural effusion or pneumothorax. HEART AND MEDIASTINUM: The cardiomediastinal silhouette is unremarkable. BONES AND SOFT TISSUES: No acute osseous lesion. Soft tissues are unremarkable. UPPER ABDOMEN: No free air under the diaphragm. IMPRESSION: No acute radiographic abnormality. Signed by: Dr. Akin Rivera MD on 04/20/2018 1:00 PM
--- NOTE | 2018-04-20 14:33 | NUR ---
ULTRASOUND HERE DOING VENOUS DOPPLER
--- NOTE | 2018-04-20 15:12 | Diagnostic Imaging Report ---
CT chest pulmonary embolism protocol CPT code: 57417 INDICATION: Shortness of breath TECHNIQUE: Thin collimation axial images obtained through the level of the pulmonary arteries with additional imaging through the chest following the uneventful administration of 100 cc of low osmolar, nonionic intravenous contrast. Images reconstructed into coronal and sagittal MIPs for complete evaluation of the tortuous and overlapping pulmonary vascular structures and to reduce patient radiation dose. RADIATION DOSE: Total DLP: 678.2 mGy*cm Estimated effective dose: (DLP x 0.015 x size factor) mSv CTDIvol has been reviewed. It is below the limits set by the Radiation Protocol Committee (RPC). COMPARISON: None. FINDINGS: Pulmonary artery: There are subtle, nonocclusive filling defects in the lower lobe branches of the right and left pulmonary arteries (series 2, images 74 and 78). No filling defects in the main pulmonary arteries or pulmonary artery trunk. Main pulmonary artery measures 2.2 cm in diameter with small amount of nondependent air from injection in the pulmonary outflow tract. Aorta: The thoracic aorta is not aneurysmal. No evidence for dissection. Lymph nodes: No enlarged axillary or supraclavicular lymph nodes. No enlarged mediastinal or hilar lymph nodes. Thyroid: Normal in size without mass in the visualized parenchyma.. Mediastinum: The heart is normal in size. No pericardial effusion. The esophagus is normal. Airways: Tracheal diverticulum to the right of midline measures 1.6 x 1.0 cm. No intraluminal filling defects in the airways or bronchial wall thickening. Lungs: Right Lung: No suspicious nodule or infiltrate. Left Lung: No suspicious nodule or infiltrate. Pleura: No pleural effusion or pleural based mass. There are small fat-containing bilateral Bochdalek hernias. Abdomen: Low attenuating lesion in the left kidney measures 2 cm and is suggestive of a cyst. Visualized portions of the liver, pancreas, spleen, and adrenal glands are unremarkable. Bones: Unremarkable for age. IMPRESSION: 1. Tiny nonocclusive filling defects in the lower lobe branches of the right and left pulmonary arteries are suggestive of nonocclusive pulmonary emboli. No evidence of pulmonary infarct. Please correlate with risk factors for pulmonary embolus. 2. Tracheal diverticulum. 3. Potential cyst in the right kidney. This can be confirmed with renal ultrasound on an outpatient basis. Signed by: Dr. Cristóbal Rivera MD on 04/20/2018 3:09 PM
[2018-04-20] MEDS ORDERED: ENOXAPARIN SODIUM INJ 100 MG/ML SYR SC STA (15:39)
--- NOTE | 2018-04-20 16:49 | Diagnostic Imaging Report ---
ADDENDUM #1 ADDENDUM: Reason for exam: Bilateral leg pain and chest pain, query DVT Signed by: Dr. Akin Rivera MD on 04/25/2018 5:40 PM ORIGINAL REPORT EXAM: Bilateral Lower Extremity Duplex Ultrasound COMPARISON: None TECHNIQUE: Lemos scale, color Doppler and spectral waveform analysis of the bilateral lower extremities deep venous system was performed. FINDINGS: Somewhat limited exam due to the patient's body habitus. Right Lower Extremity: Common Femoral: Fully compressible with normal spontaneous waveforms. Proximal Greater Saphenous: Fully compressible. Superficial Femoral: Fully compressible with normal spontaneous waveforms. Proximal Deep Femoral: Normal spontaneous waveforms. Popliteal: Fully compressible with normal spontaneous waveforms. Visualized calf veins are unremarkable. Left Lower Extremity: Common Femoral: Fully compressible with normal spontaneous waveforms. Proximal Greater Saphenous: Fully compressible. Femoral: Fully compressible with normal spontaneous waveforms. Proximal Deep Femoral: Normal spontaneous waveforms. Popliteal: Fully compressible with normal spontaneous waveforms. Visualized calf veins are unremarkable. IMPRESSION: No sonographic evidence of bilateral lower extremity DVT. Signed by: Dr. Akin Rivera MD on 04/20/2018 4:45 PM
--- NOTE | 2018-04-20 17:20 | NUR ---
[facility] called for transport
--- NOTE | 2018-04-20 18:12 | NUR ---
report given to jona Bassett @ [facility]. [phone]
--- NOTE | 2018-04-20 18:13 | NUR ---
notified housekeeping staff [place] of transfer, okayed.
--- NOTE | 2018-04-20 18:13 | NUR ---
pt stable. no sob no cp at current time.
--- NOTE | 2018-04-20 18:26 | NUR ---
report to [facility]
== END 2018-04-20 18:26 | disposition short-term general hospital (02) ==
LOC: FSED 11:58
DX: R07.89 Other chest pain (principal); I26.99 Other pulmonary embolism without acute cor pulmonale
CPT/HCPCS: 71045; 71275; 80053; 81003; 82553; 85025; 85379; 93005; 93970; 99285; J1650